=== PATIENT | female | born 2000 | race Hispanic/Latino ===

== ENCOUNTER 2025-03-16 03:08 | Emergency (ER) | payer SELFPAY ==
[~2025-03-16] VITALS: Ht 152.4 cm; Wt 77.1 kg
--- NOTE | 2025-03-16 03:23 | ERN ---
ED Note History of Present Illness Stated Complaint: ORAL PAIN Chief Complaint: Tooth Ache/Pain Time Seen by MD: 03:16 Dictation: This is a 24-year-old female who presented to the emergency room with complaints of severe tooth pain which is going on for about a month apparently her friend gave her some amoxicillin and she has been taking that without the pain relief. Temperature 97.1 pulse 75 respirations 18 blood pressure 131/58 with a pulse oximetry of 98% on room air Chronic medical problems include diabetes mellitus type 2 and obesity Allergies: Coded Allergies: No Known Allergies (Unverified Allergy, Unknown, 03/16/25) Home Meds Active Scripts Amoxicillin/Potassium Clav (Augmentin 500-125 Tablet) 500 Mg-125 Mg Tablet, 1 TAB PO BID for 7 Days, #14 TAB 0 Refills Prov:SUNIL PEARSON MD 03/16/25 Ketorolac Tromethamine (Toradol) 10 Mg Tab, 10 MG PO QID for pain for 5 Days, #20 TAB 0 Refills Prov:SUNIL PEARSON MD 03/16/25 Past Medical History Past Medical History: Diabetes-Type II Surgical History: None Family History: Negative LMP: Mar 13, 2025 RN Note Reviewed/Agreed w/PFSH: Yes Review of System Dictation Constitutional: Negative for fever,chills, and weight loss Eyes: Negative for injury, pain,redness, and discharge ENT: Negative for injury,pain or swelling positive for tooth pain Cardiovascular: Negative for chest pain, palpitations, and edema Respiratory: Negative for shortness of breath, cough, and wheezing, Abdomen/GI: Negative for abdominal pain, nausea, vomiting, diarrhea, and constipation Back: Negative for injury and pain : Negative for injury, bleeding and discharge MS/Extremity: Negative for injury and deformity Skin: Negative for rash, and discoloration Neuro: Negative for headache, weakness, numbness, tingling, and seizure Psych: Negative for suicide ideation, homicidal ideation, and hallucinations Initial Vital Sign VS Vital Signs Date Time Temp Pulse Resp B/P (MAP) Pulse Ox O2 Delivery O2 Flow Rate FiO2 03/16/25 03:10 97.2 75 18 131/58 98 Room Air 03/16/25 03:30 0 21 Physical Exam Dictation General: awake, alert, NAD very obese Head/Face: Normocephalic, atraumatic Eyes: PERRL, EOMI, vision at baseline ENT: oral cavity clear, TMs clear, no signs of infection lower jaw right 3rd molar and wisdom tooth area very inflamed and red tender to touch no purulence seen Neck: Trachea midline, supple, no nuchal rigidity Cardiovascular: RRR, normal S1/S2, No MRGs, no JVD Respiratory: CTAB, no respiratory distress, No rales or wheezes Abdomen: Soft, non-tender, non-distended, normal bowel sounds, no guarding or rebound. Skin: Warm, dry, normal turgor, no rash MS/Extremity: Pulses equal, no cyanosis, neurovascular intact, FROM Neuro: COAx4, GCS 15, strength 5/5, CN 2-12 intact, normal cerebellar exam, normal gait, Psych: Normal behavior, mood, and affect normal Extremities-trace edema without any palpable cords, Homans sign is negative Results (Laboratory/Radiology) Laboratory/Radiology Laboratory Tests Test 03/16/25 03:28 Urine HCG, Qualitative NEGATIVE (NEGATIVE) Labs Reviewed?: Yes ED Course ED Course Orders Procedure Category Date Status Time ,Urine Test LAB 03/16/25 Complete 03:18 Ketorolac PHA 03/16/25 Complete Tromethamine 30mg/Ml 04:30 Ondansetron Odt 4mg PHA 03/16/25 Complete Tab (Zofran 4mg Odt) 04:30 Morphine 4mg Syg PHA 03/16/25 Complete (Morphine 4mg Syg) 04:30 Current Medications Medications (Trade) Dose Ordered Sig/Ghazala Route PRN Reason Start Time Stop Time Status Last Admin Dose Admin Ketorolac Tromethamine (toRADol) 30 mg ONCE ONCE IM 03/16/25 04:30 03/16/25 04:31 DC 03/16/25 04:39 Morphine Sulfate (morPHINE 4MG SYG) 4 mg ONCE ONCE IM 03/16/25 04:30 03/16/25 04:31 DC 03/16/25 04:39 Ondansetron HCl (zoFRAN 4MG ODT) 4 mg ONCE ONCE SL 03/16/25 04:30 03/16/25 04:31 DC 03/16/25 04:38 Vital Signs Date Time Temp Pulse Resp B/P (MAP) Pulse Ox O2 Delivery O2 Flow Rate FiO2 03/16/25 04:30 97.7 76 17 131/69 99 Room Air* 0 21 03/16/25 03:30 97.9 77 18 138/64 97 Room Air* 0 03/16/25 03:10 97.2 75 18 131/58 98 Room Air We will perform diagnostic labs, and administer medications according to the patient's complaint. Once the results are available, will review and personally interpreted the labs to rule out any acute life-threatening emergency the trach require immediate intervention and treatment. I will then re-evaluate the patient after treatment and diagnostic exams have return to determine whether the patient requires any further testing, can safely be discharged home or need further admission to hospital for additional treatment and evaluation. Urine test is negative Medical Decision Making MDM MDM: Differential diagnosis: Periodontitis, gingivitis, root canal infection, Rationale: Tests considered and ordered secondary to shared decision making include: Previous outside records reviewed: Old ER visits. Risk of complication and/or morbidity or mortality of patient management: None Medications-Per medication reconciliation Need for hospitalization: Patient does not meet criteria for hospitalization. Need for emergency major/minor surgery: No There are no social concerns with this patient. Prescription drug management Prescriptions will include symptomatic care Patient's prior external medical records from other ER visits were reviewed by me as indicated. Prior testing and results from previous visits were reviewed. Prior tests were taken into account with medical decision making and resource utilization, independent historian/historians were used to obtain complete medical history. I independently interpreted the test that were performed, results were reviewed by me and considered findings on radiology if ordered. Medical management and examination interpretation discussions were had by me with other qualified healthcare professionals as indicated for the patient's care. Problem List Problem List: (1) Infection of tooth (2) Gingivitis (3) Periodontitis DX & DISP Disposition: Discharge Departure Impression: Primary Impression: Infection of tooth Additional Impressions: Gingivitis, Periodontitis Condition: Stable Scripts Amoxicillin/Potassium Clav (Augmentin 500-125 Tablet) 500 Mg-125 Mg Tablet 1 TAB PO BID for 7 Days, #14 TAB 0 Refills Prov: SUNIL PEARSON MD 03/16/25 Ketorolac Tromethamine (Toradol) 10 Mg Tab 10 MG PO QID for pain for 5 Days, #20 TAB 0 Refills Prov: SUNIL PEARSON MD 03/16/25 Additional Instructions: Patient and the caregiver have been informed of all the diagnostic tests and the imaging conducted during the today's visit to the emergency room and has verbalized understanding of the results I have personally reviewed and interpreted all diagnostic exams performed here in the ER today as well as the vital signs documented by the nursing staff. The patient is now being discharged to home and should follow up with the primary care physician or the specialist as directed by the ER staff. Follow-up with primary care provider in 1 to 2 days. Take medications as directed here in the emergency room. Okay to continue home medications unless otherwise discussed during your visit in the emergency room today. Return to your nearest emergency room if symptoms worsen or if there is no improvement. Call 911 if you need immediate assistance. Take Tylenol or Motrin [id number] as needed and if no contraindications are present. Increase oral hydration. A wound culture or urine culture was ordered here in the emergency room department please follow-up with primary care provider and advise them to get repeat ports from our facility. If you had any Suhail wrap/splints that were applied here, please do not remove them until you see your primary care or specialty. Referrals: SELF,REFERRAL (PCP) SUNIL PEARSON MD Mar 16, 2025 03:23
[2025-03-16] MEDS ORDERED: KETO10 PO (04:30)
[2025-03-16] MEDS ORDERED: AMOX-426 PO (04:30)
[2025-03-16 05:45] VITALS: BP 132/70; PULSE 78; RESP 19; TEMP 97.8; O2SAT 98
== END 2025-03-16 05:57 | disposition home or self-care (01) ==
LOC: EDH 03:08
DX: K04.7 Periapical abscess without sinus (principal); K05.10 Chronic gingivitis, plaque induced; K05.30 Chronic periodontitis, unspecified; E11.9 Type 2 diabetes mellitus without complications; Z79.899 Other long term (current) drug therapy
CPT/HCPCS: 99284; 81025; 96372 ×2; J1885; J2270